=== PATIENT | female | born 1945 | race Caucasian/White ===

== ENCOUNTER 2016-11-25 05:50 | Day surgery (SDC) | payer MEDICARE, OTHER ==
[2016-11-21 16:13] VITALS: BMI 31.0
[2016-11-25] MEDS ORDERED: SODIUM CHLORIDE 0.9% 1,000 ML IV SCH (05:58)
[2016-11-25] MEDS ORDERED: CLINDAMYCIN 900 MG in DEXTROSE 5% IN WATER 50 ML IVPB ONE ×2 (05:58)
[2016-11-25 06:27] VITALS: TEMP 97.8
[2016-11-25] MEDS ORDERED: MIDAZOLAM 2 MG/2 ML VIAL IV ONE (07:49)
[2016-11-25] MEDS ORDERED: LIDOCAINE 2% INJ 20 MG/ML SQ ONE (07:49)
[2016-11-25 08:58] VITALS: RESP 18
--- NOTE | 2016-11-25 10:45 | CE ---
DATE OF SERVICE: 11/25/2016 PROCEDURE: Loop recorder insertion, [employer] Linq device. CLINICAL INFORMATION: Mrs. 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 She has been monitored closely during the stroke and also had a loop recorder that did not reveal any significant arrhythmia, specifically atrial fibrillation was not seen. She was advised to have a loop recorder and brought in for the procedure electively. PROCEDURE NOTE: Under strict aseptic precautions and local anesthesia, a single stab incision was made with the available insertion tool in the left fourth intercostal space. The insertion tool was also advanced and then the Linq device was advanced using the tool plunger that was provided. A single suture with 2-0 silk was applied. Patient tolerated the procedure well without complication. The signal from the Reveal Linq monitor was excellent with 0.47 mV. The cryptogenic parameters were set for a low rate of 40, a high a rate of 158. Patient tolerated the procedure very well. 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 Patient tolerated the procedure well without complications. The details were discussed with the patient and her and she will be discharged in the next 1-1/2 hours or 2 hours. Moderate conscious sedation was provided for a total duration of 15 minutes.
[2016-11-25 10:59] VITALS: BP 121/58; PULSE 52
== END 2016-11-25 10:00 | disposition home or self-care (01) ==
LOC: CATHEP 05:50
PROVIDERS: ATTEND Internal Medicine Interventional Cardiology
DX: Z86.73 Personal history of transient ischemic attack (TIA), and cerebral infarction without residual deficits (principal); I10 Essential (primary) hypertension; E78.5 Hyperlipidemia, unspecified; E78.00 Pure hypercholesterolemia, unspecified; E66.9 Obesity, unspecified; Z68.30 Body mass index [BMI] 30.0-30.9, adult; Z82.49 Family history of ischemic heart disease and other diseases of the circulatory system; Z79.02 Long term (current) use of antithrombotics/antiplatelets; Z79.82 Long term (current) use of aspirin; Z79.899 Other long term (current) drug therapy; Z88.1 Allergy status to other antibiotic agents; Z88.0 Allergy status to penicillin; Z88.2 Allergy status to sulfonamides; Z87.891 Personal history of nicotine dependence
CPT/HCPCS: 33282; C1764; J2001; J2250

== ENCOUNTER → 2020-03-01 | Outpatient (CLI) | payer MEDICARE ==
--- NOTE | 2020-03-01 13:34 | BD ---
EXAMINATION TYPE: Axial Bone Density DATE OF EXAM: 03/01/2020 COMPARISON: NONE CLINICAL HISTORY: 74 YR OLD FEMALE....ICD-10 CODE: Z78.0 POST MENOPAUSAL Height: 62 Weight: 171 FRAX RISK QUESTIONS: NOTHING ADDITIONAL TO NOTE HERE RISK FACTORS HISTORY OF: Postmenopausal woman: YES, AT 50 YRS OLD Hyperparathyroidism: NO Adrenal Insufficiency: NO MEDICATIONS: Thyroid Medications: YES, SYNTHROID FOR ABOUT 15 YRS Additional Medications: BP MEDS, STATIN FOR CHOLESTEROL, PLAVIX Additional History: HYPERTENSION, CHOLESTEROL, BILAT TOTAL KNEE REPLACEMENTS, OSTEOARTHRITIS EXAM MEASUREMENTS: Bone mineral densitometry was performed using the [employer]. Bone mineral density as measured about the Lumbar spine is: ----- L1-L4(G/cm2): 1.782 T Score Values are as follows: ----- L1: 4.3 ----- L2: 5.4 ----- L3: 5.7 ----- L4: 4.4 ----- L1-L4: 5.0 Bone mineral density IS HER FIRST BONE DENSITY AT [facility] Bone mineral density about the R hip (g/cm2): 0.947 Bone mineral density about the L hip (g/cm2): 1.038 T Score values are as follows: -----R Neck: -0.5 -----L Neck: 0.1 -----R Total: -0.5 -----L Total: 0.2 Bone mineral density IS FIRST ONE AT [facility] FRAX%s: THERE IS A 8.7% CHANCE FOR A MAJOR OSTEOPOROTIC FX AND 1.1% FOR HIP.....PROBABILITY FOR FX IN 10 YRS TIME IMPRESSION: No evidence for osteoporosis or osteopenia. NOTE: T-SCORE=SD OF THE YOUNG ADULT MEAN.
== END | disposition home or self-care (01) ==
LOC: RADBDWWP 07:03
PROVIDERS: ATTEND Family Medicine
DX: Z78.0 Asymptomatic menopausal state (principal)
CPT/HCPCS: 77080

== ENCOUNTER → 2020-05-03 | Outpatient (CLI) | payer MEDICARE ==
[2020-05-03 09:19] LABS: HCT 41.6 % (34.0-46.0); HGB 13.1 gm/dL (11.4-16.0); MCH 31.1 pg (25.0-35.0); MCHC 31.6 g/dL (31.0-37.0); MCV 98.5 fL (80.0-100.0); Mean Platelet Volume 8.6; Platelet Count 281 k/uL (150-450); RBC 4.22 m/uL (3.80-5.40); RDW 14.4 % (11.5-15.5); WBC 9.5 k/uL (3.8-10.6)
[2020-05-03 09:34] LABS: African American GFR (CKD) >90 (>60 ml/min/1.73 sqM); Anion Gap 5 mmol/L; Blood Urea Nitrogen 14 mg/dL (7-17); Carbon Dioxide 25 mmol/L (22-30); Chloride 109 mmol/L (98-107); Magnesium 1.8 mg/dL (1.6-2.3); Non-African American GFR(CKD) 87 (>60 ml/min/1.73 sqM); Potassium 4.4 mmol/L (3.5-5.1); Sodium 139 mmol/L (137-145)
== END | disposition home or self-care (01) ==
LOC: LABPAT 08:25
PROVIDERS: ATTEND Internal Medicine Interventional Cardiology
DX: Z01.818 Encounter for other preprocedural examination (principal); Z86.73 Personal history of transient ischemic attack (TIA), and cerebral infarction without residual deficits
CPT/HCPCS: 80051; 82565; 83735; 84520; 85027